=== PATIENT | male | born 1955 | race Caucasian/White ===

== ENCOUNTER → 2017-09-06 | Outpatient (REF) ==
[2017-09-06 16:39] LABS: ALBUMIN 3.5 gm/dL (3.5-5.0); PHOSPHOROUS 3.2 mg/dL (2.5-4.5)
== END ==
LOC: ZMSC 16:23
PROVIDERS: Otolaryngology
DX: Z01.89 Encounter for other specified special examinations (principal)

== ENCOUNTER → 2017-09-07 | Outpatient (REF) ==
[2017-09-07 06:07] LABS: ALBUMIN 3.9 gm/dL (3.5-5.0); CALCIUM 9.3 mg/dL (8.4-10.2); PHOSPHOROUS 4.9 mg/dL (2.5-4.5)
== END ==
LOC: ZMSC 05:53
PROVIDERS: Otolaryngology
DX: Z01.89 Encounter for other specified special examinations (principal)

== ENCOUNTER → 2017-09-07 | Outpatient (REF) ==
[2017-09-07 16:23] LABS: ALBUMIN 3.7 gm/dL (3.5-5.0); CALCIUM 9.2 mg/dL (8.4-10.2); PHOSPHOROUS 4.4 mg/dL (2.5-4.5)
== END ==
LOC: ZMSC 16:04
PROVIDERS: Otolaryngology
DX: Z01.89 Encounter for other specified special examinations (principal)

== ENCOUNTER 2017-10-05 14:30 | Outpatient (RCR) | payer OTHER ==
[2017-10-04 14:22] VITALS: BP 115/69; PULSE 82; TEMP 98.4
[~2017-10-05] VITALS: Ht 177.8 cm; Wt 95.8 kg
[~2017-10-05 14:30] MED LIST: 00186-0370-20 IH; ASPIRIN E.C. 8181 MG PO; LIPITOR20 MG PO; MULTIPLE VITAMI1 CAP PO; PRINIVIL20 MG PO; PROAIR HFA0.09 MG/AC IH; SPIRIVA RE2.5 MCG/Ac IH; VITAMIN B125000 MCG PO
[2017-10-05 15:00] VITALS: BP 132/82; PULSE 74; TEMP 98.6
== END 2018-01-02 | disposition home or self-care (01) ==
LOC: EUO
DX: C73 Malignant neoplasm of thyroid gland (principal)
CPT/HCPCS: A9517; J3240

== ENCOUNTER → 2017-10-13 | Outpatient (CLI) | payer OTHER ==
[2017-10-16 11:56] LABS: THYROGLOBULIN AB SCREEN <1.8 IU/mL (<4.0); THYROGLOBULIN TUMOR MARKER 9.2 ng/mL (())
== END ==
LOC: EUO 06:22
PROVIDERS: Otolaryngology
DX: C73 Malignant neoplasm of thyroid gland (principal)

== ENCOUNTER → 2018-09-18 | Outpatient (CLI) | payer OTHER | LOC: COL.PUL 10:35 | DX: Z02.71 Encounter for disability determination (principal); Z87.891 Personal history of nicotine dependence ==

== ENCOUNTER → 2018-12-26 | Outpatient (CLI) | payer BC | LOC: COL.RAD 10:46 | DX: I27.20 Pulmonary hypertension, unspecified (principal) | CPT/HCPCS: A9540; A9567 ==

== ENCOUNTER → 2020-07-29 | Outpatient (CLI) | payer MEDICARE, MEDICAID ==
[~2020-07-29] MED LIST changes: +ALBUTEROL0.83 MG/ML IH; +LASIX 20MG TABL20 MG PO; +LIPITOR 10MG10 MG PO; +MUCINEX FAST-M1 EA10 PO; -MULTIPLE VITAMI1 CAP PO; +MULTIPLE VITAMI1 TA5 PO; +SYNTHROID 0.10.15 MG PO; +THEO-DUR 3300 MG/TAB PO; +TRELEGY ELLIPT1 EACH IH; +ZESTORETIC 12.51 TA1 PO
== END ==
LOC: COL.RAD 14:46
DX: Z12.2 Encounter for screening for malignant neoplasm of respiratory organs (principal); R91.1 Solitary pulmonary nodule; Z87.891 Personal history of nicotine dependence

== ENCOUNTER 2020-09-07 09:05 | Outpatient (CLI) | payer MEDICARE, MEDICAID ==
[2020-09-07] VITALS (14 sets, daily range): BP systolic 81–106; BP diastolic 48–67; PULSE 75–95
[~2020-09-07] VITALS: Ht 177.8 cm; Wt 83.0 kg
--- NOTE | 2020-09-07 10:25 | NUR ---
pt in CT scanner, monitor on, waiting for
--- NOTE | 2020-09-07 10:40 | NUR ---
Dr Diaz here, procedure started
--- NOTE | 2020-09-07 11:00 | NUR ---
specimans obtained in formulin form right upper lung by Dr Diaz, bandaid over site, states no pneumo at this time, chest x-ray in 2 hours, pt on cart, will go to [facility]
--- NOTE | 2020-09-07 13:40 | NUR ---
DC instructions reviewed with pt and daughter, both express understanding. Pt steady on feet in room, no dizziness reported. BPs written out for pt to review with his PCP at follow up appt. INT DC'd with catheter intact. He is assisted out to car by wheelchair.
== END 2020-09-07 13:40 | disposition home or self-care (01) ==
LOC: COL.RAD 09:05
DX: R91.8 Other nonspecific abnormal finding of lung field (principal)
CPT/HCPCS: 32107

== ENCOUNTER 2021-01-28 06:40 | Outpatient (CLI) | payer MEDICARE, MEDICAID ==
[~2021-01-28] VITALS: Ht 177.8 cm; Wt 73.5 kg
[2021-01-28] VITALS (30 sets, daily range): BP systolic 88–121; BP diastolic 48–71; PULSE 72–95; TEMP 98.1
[2021-01-28] MEDS ORDERED: ZESTRIL 10MG10 MG PO (07:11)
[2021-01-28] MEDS ORDERED: ATROVENT I0.2 MG/1 M IH (07:14)
[2021-01-28] MEDS ORDERED: PULMICORT0.5 MG/2 M IH (07:15)
--- NOTE | 2021-01-28 11:24 | NUR ---
REPEAT CHEST XRAY AT THIS TIME.
--- NOTE | 2021-01-28 13:40 | NUR ---
Clamped Chest tube per Dr. Babcock and ordered CXR for one hour
--- NOTE | 2021-01-28 13:55 | NUR ---
C/o chest pain and shortness of air since chest tube was clamped. Notified Dr. Babcock and clamp unclamped.
--- NOTE | 2021-01-28 14:16 | NUR ---
O2 sats up from 80% to 99% on 6 liters O2. Pt continues to c/o chest pain
--- NOTE | 2021-01-28 15:50 | NUR ---
INT discontinued intact. O2 sats have stayed 3 liters for one hour. Tylenol [address] Babcock order. Discharge instructions given
--- NOTE | 2021-01-28 16:00 | NUR ---
Transferred to private car by . To return 01/29/21 to have chest tube discontinued.
== END 2021-01-28 16:00 | disposition home or self-care (01) ==
LOC: COL.RAD 06:40
DX: J93.9 Pneumothorax, unspecified (principal); R91.1 Solitary pulmonary nodule; Z97.8 Presence of other specified devices
CPT/HCPCS: J3010

== ENCOUNTER 2021-01-29 09:45 | Observation (INO) | payer MEDICARE, MEDICAID ==
[~2021-01-29] VITALS: Ht 177.8 cm; Wt 84.4 kg
[~2021-01-29 09:45] MED LIST changes: +ATROVENT I0.2 MG/1 M IH; +PULMICORT0.5 MG/2 M IH; +ZESTRIL 10MG10 MG PO
[2021-01-29 10:42] VITALS: BP 104/68; PULSE 99
[2021-01-29 11:05] VITALS: BP 87/52; PULSE 102
[2021-01-29 12:21] VITALS: BP 92/62; PULSE 104
[2021-01-29 13:09] VITALS: BP 104/55; PULSE 100; TEMP 98.7
--- NOTE | 2021-01-29 14:15 | NUR ---
Patient admitted to room 350. His daugher at bedside. Patient awake & alert. Gina Jiang made aware of admission. All admission paperwork completed. Tele on and Scds Ble. Will monitor.
--- NOTE | 2021-01-29 15:05 | NUR ---
Patietn resting in bed. Denies needs
--- NOTE | 2021-01-29 16:32 | NUR ---
Patietn up to the bathroom, stand by assist. Spoke to on the phone & chest tube set up to 20cmhg suction per orders. bubbling noted in canister. Patient tolerated well.
--- NOTE | 2021-01-29 19:11 | NUR ---
rounded. plan of care reviewed. patient tolerated dinner. bedside report to gissell.
[2021-01-29 19:19] VITALS: BP 98/62; PULSE 95; TEMP 98
--- NOTE | 2021-01-29 20:00 | NUR ---
PT IN BED, HAS RT SMALL BARREL CHEST TUBE TO LCS. HAS OXYGEN ON AT 3L/NC. DENIES NEED FOR PAIN MEDS AT THIS TIME. SL TO LEFT FOREARM FLUSHES WELL.
[2021-01-29 23:37] VITALS: BP 98/56; PULSE 70; TEMP 98.2
[2021-01-30 03:58] VITALS: BP 98/55; PULSE 76; TEMP 98
[2021-01-30 08:00] VITALS: BP 109/51; PULSE 83; TEMP 98.4
--- NOTE | 2021-01-30 08:30 | NUR ---
Patient assisted up to the bathroom, stand by assist. Voided. He tolerated breakfast. rounded this am. Chest tube clamped by , plans for chest xray this afternoon. Int. Tele on. Vss. Flu shot per his request, he tolerated well. Will montior close
[2021-01-30 10:59] VITALS: BP 120/72; PULSE 78; TEMP 98
--- NOTE | 2021-01-30 11:07 | NUR ---
patient resting in bed. denies needs
--- NOTE | 2021-01-30 13:13 | NUR ---
stopped by but nothing needed at this time.
--- NOTE | 2021-01-30 14:12 | NUR ---
CALLED [facility] & MADE THEM AWARE OF 1400 CHEST XRAY.
--- NOTE | 2021-01-30 16:11 | NUR ---
Plan is to return home in [place]. Patient shares that he has a DTR that is apart of his care Corrie . Patient reports that his PCP is Dr. Lau, Dr. Martinez and his heart dtr works in the same office as Dennise but can not remember name. Patient reports that he uses oxygen and has his own concetrator and uses 3 liters at rest and 4 with activity. Patient shares that he has back pain but not in pain at this time. Patient denies the need for home health care and still drives and is mobile. Patient reports DTR will take hime home. Patient reports independent living. Educated on services through case management. NF>
--- NOTE | 2021-01-30 17:12 | NUR ---
ROUNDED. CHEST TUBE DC. DISCHARGE ORDERS OBTAINED. HOSPITALIST AWARE. PATIENT GIVEN DISCHARGE EDUCATION. DENIES QUESTIONS OR CONCERNS. WHEELED OUT WITH ALL BELONGINGS. INT DC. HE IS AWARE OF MAKING FOLLOW UP APPTS & IMPORTNACE OF MONITORING BP AND STOPPIONG LASIX & LISINOPRIL.
== END 2021-01-30 17:15 | disposition home or self-care (01) ==
LOC: COL.RAD 09:45 → SURG 13:00
PROVIDERS: ADMIT Internal Medicine
DX: J93.9 Pneumothorax, unspecified (principal); R91.8 Other nonspecific abnormal finding of lung field; J44.9 Chronic obstructive pulmonary disease, unspecified; J96.11 Chronic respiratory failure with hypoxia; E78.5 Hyperlipidemia, unspecified; I95.9 Hypotension, unspecified; I11.0 Hypertensive heart disease with heart failure; I50.9 Heart failure, unspecified; Z79.899 Other long term (current) drug therapy; Z79.82 Long term (current) use of aspirin; Z87.891 Personal history of nicotine dependence
CPT/HCPCS: A7041; G0008; G0378

== ENCOUNTER → 2021-02-18 | Outpatient (CLI) | payer MEDICARE | LOC: COL.RAD 12:06 | DX: C34.11 Malignant neoplasm of upper lobe, right bronchus or lung (principal) | CPT/HCPCS: A9585 ==